=== PATIENT | female | born 1985 | race Caucasian/White ===

== ENCOUNTER 2016-09-28 12:55 | Emergency (ER) | payer OTHER ==
[~2016-09-28] VITALS: Ht 167.6 cm; Wt 79.0 kg
[~2016-09-28 12:55] MED LIST: AMOX875 PO; IBUP800 PO; IBUP800T23 PO; PERC5TAB12 PO
[2016-09-28 12:57] VITALS: BP 141/95; PULSE 98; RESP 16; TEMP 98.5; O2SAT 97
[2016-09-28] MEDS ORDERED: SODIUM CHLOR 0.9% 1000 ML INJ 1,000 ML IV ONE (14:47)
--- NOTE | 2016-09-28 14:51 | PD ---
HPI Chief Complaint: Headache Time Seen by Provider: 14:48 Travel History International Travel<30 days: No Contact w/Intl Traveler<30days: No Traveled to known affect area: No History of Present Illness HPI 31-year-old female presents to the emergency department for evaluation of right- sided headache that started 5 days ago gradually and has worsened. Patient denies a history of similar headaches in the past. She does state she has associated photophobia and nausea. She denies any vomiting. She denies any weakness or syncope. Patient presents history DVT in the past, but is not currently on anticoagulants. She states she was on anticoagulants for a period time, but then was taken off of the anticoagulants. She denies any chance of reporting a tubal ligation. She denies any fevers or chills. She states she has taken Tylenol [id number] without improvement. PFSH Past Medical History Asthma: No Autoimmune Disease: No Blood Disorders: No Anxiety: Yes Depression: No Heart Rhythm Problems: No Cancer: No Cardiovascular Problems: Yes High Cholesterol: No Chest Pain: No Congestive Heart Failure: No COPD: No Diabetes: No Diminished Hearing: No Deep Vein Thrombosis: Yes (LEFT SUBCLAVIAN) Endocrine: No Gastrointestinal Disorders: Yes Genitourinary: Yes Hypertension: Yes Immune Disorder: No Musculoskeletal: Yes (BLOOD CLOT IN ARM PREVIOUSLY) Neurologic: No Psychiatric: No Reproductive: No Respiratory: No Sickle Cell Disease: No Sleep Apnea: No Thyroid Disease: No Tetanus Vaccination: < 5 Years ?: Not LMP: 1 WEEK AGO : 6 Para: 5 Past Surgical History Abdominal Surgery: Yes (CHOLYSYSTECTOMY) Cholecystectomy: Yes Oral Surgery: Yes (TONSILECTOMY/ADNOIDECTOMY) Tonsillectomy: Yes (AND ADENOIDS) Other Surgery: Yes Social History Alcohol Use: No Tobacco Use: Yes (10 CIG/DAY) Substance Use: No Allergies-Medications (Allergen,Severity, Reaction): Coded Allergies: Codeine (Verified Allergy, Severe, Anaphylaxis, 09/28/16) Zithromax (Verified Allergy, Severe, SWELLING UP, 09/28/16) Reported Meds & Prescriptions Reported Meds & Active Scripts Active No Active Prescriptions or Reported Medications Review of Systems Except as stated in HPI: all other systems reviewed are Neg Physical Exam Narrative GENERAL: Well-developed well-nourished female patient, ambulatory. Afebrile. SKIN: Warm and dry. HEAD: Normocephalic. Atraumatic. EYES: No scleral icterus. No injection or drainage. PERRLA. EOM intact. ENT: Mucosa pink and moist. No erythema or exudates. No uvular edema. No uvular , palatal, or tonsillar deviation. Airway patent. Nasal turbinates appear normal without nasal blood, purulent drainage or septal hematoma. Bilateral tympanic membranes are clear without erythema or perforation. NECK: Supple, trachea midline. No JVD or lymphadenopathy. CARDIOVASCULAR: Regular rate and rhythm without murmurs, gallops, or rubs. RESPIRATORY: Breath sounds equal bilaterally. No accessory muscle use. Lungs sounds are clear to auscultation. GASTROINTESTINAL: Abdomen soft, non-tender, nondistended. MUSCULOSKELETAL: No cyanosis, or edema. Bilateral upper and lower extremity strength 5/5. All extremities are neurovascularly intact. BACK: Nontender without obvious deformity. No CVA tenderness. NEUROLOGICAL: Awake and alert. Cranial nerves II through XII intact. Motor and sensory grossly within normal limits. Five out of 5 muscle strength in all muscle groups. Normal speech. Finger to nose is normal bilaterally. Heel-to- woodruff is normal bilaterally. Data Data Last Documented VS Vital Signs Date Time Temp Pulse Resp B/P Pulse Ox O2 Delivery O2 Flow Rate FiO2 09/28/16 12:57 98.5 98 16 141/[address] Brain W/O Iv Contrast(Rout) (09/28/16 14:47) Iv Access Insert/Monitor (09/28/16 14:47) Sodium Chloride 0.9% Flush (Ns Flush) (09/28/16 15:00) Prochlorperazine Inj (Compazine Inj) (09/28/16 15:00) Diphenhydramine Inj (Benadryl Inj) (09/28/16 15:00) Sodium Chlor 0.9% 1000 Ml Inj (Ns 1000 M (09/28/16 14:47) Ketorolac Inj (Toradol Inj) (09/28/16 15:45) Ketorolac Inj (Toradol Inj) (09/28/16 15:45) MDM Medical Decision Making Medical Screen Exam Complete: Yes Emergency Medical Condition: Yes Medical Record Reviewed: Yes Interpretation(s) CT brain - CONCLUSION: Normal examination. Differential Diagnosis Migraine headache versus tension type headache versus cluster headache versus intracranial abnormality Narrative Course 31-year-old female presents to the emergency department for evaluation of headache for 5 days that started and gradually worsened. She denies a history of chronic headaches. Physical exam shows no focal neurological deficits. Symptoms and physical are most consistent with a migraine headache, I do not suspect subarachnoid hemorrhage. CT of the brain is ordered and pending. CT of the brain is normal. Upon reexamination, patient states pain is much better. Patient will be discharged with a prescription for ibuprofen for pain. She is instructed to follow with her primary care physician. She is agreeable to this plan. Diagnosis Primary Impression: Headache Qualified Code: R51 - Acute nonintractable headache, unspecified headache type Referrals: Primary Care Physician call for appointment Patient Instructions: Acute Headache (ED), General Instructions Additional Instructions: Rest. Take ibuprofen as instructed as needed with food for pain. Follow-up with your primary care physician. Return to the emergency department for any acute worsening of symptoms. Med/Other Pt SpecificInfo: Prescription(s) given Scripts Ibuprofen 800 Mg [id number] Mg PO TID PRN (PAIN SCALE 1 TO 10) #21 TAB Ref 0 Prov:Astrid Felix 09/28/16 Disposition: 01 DISCHARGE HOME Condition: Stable Astrid Felix Sep 28, 2016 14:51
[2016-09-28] MEDS ORDERED: PROCHLORPERAZINE INJ 10 MG/2 ML VIAL IVP ONE (15:00)
[2016-09-28] MEDS ORDERED: SODIUM CHLORIDE 0.9% FLUSH 5 ML FLUSH IVF PRN (15:00)
[2016-09-28] MEDS ORDERED: diphenhydrAMINE HCL 50 MG/ML VIAL IVP ONE (15:00)
--- NOTE | 2016-09-28 15:17 | RADHPO ---
EXAM DATE/TIME: 09/28/2016 15:01 [facility] COMPARISON: CT BRAIN W/O CONTRAST, January 30, 2015, 12:03. INDICATIONS : Right sided headache x 5 days. Photophobia. Nausea. RADIATION DOSE: 62.38 CTDIvol (mGy) MEDICAL HISTORY : Deep venous thrombosis. Hypertension. SURGICAL HISTORY : Cholecystectomy. ENCOUNTER: Initial ACUITY: 4 - 6 days PAIN SCALE: 7/10 LOCATION: cranial TECHNIQUE: Multiple contiguous axial images were obtained of the head. Using automated exposure control and adj ustment of the mA and/or kV according to patient size, radiation dose was kept as low as reasonably a chievable to obtain optimal diagnostic quality images. FINDINGS: CEREBRUM: The ventricles are normal for age. No evidence of midline shift, mass lesion, hemorrhage or acute in farction. No extra-axial fluid collections are seen. POSTERIOR FOSSA: The cerebellum and brainstem are intact. The 4th ventricle is midline. The cerebellopontine angle i s unremarkable. EXTRACRANIAL: The visualized portion of the orbits is intact. SKULL: The calvaria is intact. No evidence of skull fracture. CONCLUSION: Normal examination. Greer Zarate MD on September 28, 2016 at 15:15 Board Certified Radiologist. This report was verified electronically.
[2016-09-28] MEDS ORDERED: KETOROLAC TROMETHAMINE 60 MG/2 ML (IM) VIAL IM ONE (15:45)
[2016-09-28] MEDS ORDERED: KETOROLAC TROMETHAMINE 30 MG/ML (IVP) VIAL IV PUSH ONE (15:45)
[2016-09-28] MEDS ORDERED: IBUP800T23 PO (16:19)
[2016-09-28 16:50] VITALS: BP 138/94
== END 2016-09-28 16:52 | disposition home or self-care (01) ==
LOC: PHED 12:55 → PHEFT 16:52
DX: R51 Headache (principal); F41.9 Anxiety disorder, unspecified; F17.210 Nicotine dependence, cigarettes, uncomplicated
CPT/HCPCS: 70450; 96361; 96374; 96375; 99284; J0780; J1200; J1885; J7030